=== PATIENT | male | born 1960 | race Two or more races ===

== ENCOUNTER 2019-04-06 13:08 | Emergency (ER) | payer OTHER ==
[~2019-04-06] VITALS: Ht 170.2 cm; Wt 106.6 kg
[~2019-04-06 13:08] MED LIST: AMOX1TAB5 PO; ASPIR 8181 MG PO; AVAPRO150 MG PO; BACTROBAN OINT22 GM TP; CATAFLAM50 MG PO; GILTUSS TR TAB1 EACH PO; HUMALOG MI100 UNIT/1 SQ; METFORMIN HCL500 MG PO; ORPH100T PO; PLAVIX75 MG PO; TRAMADOL HCL-AP1 TAB PO; ULTRAM50 MG PO
== END 2019-04-06 15:15 | disposition home or self-care (01) ==
LOC: ER 13:08
DX: B34.9 Viral infection, unspecified (principal)

== ENCOUNTER 2022-06-27 11:34 | Inpatient (IN) | payer OTHER ==
[~2022-06-27] VITALS: Ht 170.2 cm; Wt 99.8 kg
[2022-06-27] MEDS ORDERED: [UNRECOGNIZED DRUG - OTHER] (12:24)
[2022-06-27] MEDS ORDERED: APIDRA100 UNIT/1 (12:25)
[2022-06-27] MEDS ORDERED: TOPROL XL25 M1 (12:25)
[2022-06-27] MEDS ORDERED: COZAAR25 MG (12:25)
[2022-07-02] MEDS ORDERED: INTESTINEX680 M1 PO (16:10)
[2022-07-02] MEDS ORDERED: CIPRO500 MG PO (16:10)
[2022-07-02] MEDS ORDERED: METRONIDAZOLE500 MG PO (16:10)
== END 2022-07-02 17:31 | disposition home or self-care (01) | DRG 292 ==
LOC: ER 11:34 → SEC-K 20:36 → MEDJ 20:36
PROVIDERS: ADMIT Internal Medicine; ATTEND Internal Medicine
PROC: BW21ZZZ Computerized Tomography (CT Scan) of Abdomen and Pelvis (ICD-10-PCS; 2022-06-27)
PROC: B44FZZZ Ultrasonography of Right Lower Extremity Arteries (ICD-10-PCS; principal; 2022-06-29)
PROC: B54BZZZ Ultrasonography of Right Lower Extremity Veins (ICD-10-PCS; 2022-06-29)
DX: I13.0 Hypertensive heart and chronic kidney disease with heart failure and stage 1 through stage 4 chronic kidney disease, or unspecified chronic kidney disease (principal); A02.0 Salmonella enteritis; L03.113 Cellulitis of right upper limb; E86.0 Dehydration; E11.65 Type 2 diabetes mellitus with hyperglycemia; I73.9 Peripheral vascular disease, unspecified; K52.89 Other specified noninfective gastroenteritis and colitis; Z20.822 Contact with and (suspected) exposure to COVID-19; Z79.4 Long term (current) use of insulin

== ENCOUNTER 2022-10-08 04:58 | Day surgery (SDC) | payer OTHER ==
[~2022-10-08] VITALS: Ht 170.2 cm; Wt 99.8 kg
[~2022-10-08 04:58] MED LIST changes: +APIDRA100 UNIT/1; +CIPRO500 MG PO; +COZAAR25 MG; +INTESTINEX680 M1 PO; +METRONIDAZOLE500 MG PO; +TOPROL XL25 M1; +[UNRECOGNIZED DRUG - OTHER]
== END 2022-10-08 11:40 | disposition home or self-care (01) ==
LOC: CIR.AMB 04:58
PROVIDERS: ATTEND Urology
DX: N47.1 Phimosis (principal); N47.7 Other inflammatory diseases of prepuce; I10 Essential (primary) hypertension; E78.5 Hyperlipidemia, unspecified; Z86.16 Personal history of COVID-19; Z20.822 Contact with and (suspected) exposure to COVID-19

== ENCOUNTER 2023-01-14 19:05 | Emergency (ER) | payer OTHER ==
[~2023-01-14] VITALS: Ht 170.2 cm; Wt 104.3 kg
== END 2023-01-14 21:17 | disposition home or self-care (01) ==
LOC: ER 19:05
DX: S91.111A Laceration without foreign body of right great toe without damage to nail, initial encounter (principal); W19.XXXA Unspecified fall, initial encounter; Y93.9 Activity, unspecified; Y92.89 Other specified places as the place of occurrence of the external cause; Y99.9 Unspecified external cause status; E11.21 Type 2 diabetes mellitus with diabetic nephropathy; Z79.4 Long term (current) use of insulin; I10 Essential (primary) hypertension

== ENCOUNTER → 2023-01-22 | Emergency (ER) | payer OTHER ==
[~2023-01-22] VITALS: Ht 170.2 cm; Wt 104.3 kg
[~2023-01-22] MED LIST changes: +TRIJARDY XR 101 EACH PO
== END | disposition home or self-care (01) ==
LOC: ER 13:20
DX: Z48.02 Encounter for removal of sutures (principal); E11.9 Type 2 diabetes mellitus without complications; Z79.4 Long term (current) use of insulin; I10 Essential (primary) hypertension

== ENCOUNTER 2024-08-30 10:25 | Emergency (ER) | payer OTHER ==
[~2024-08-30] VITALS: Ht 170.2 cm; Wt 102.1 kg
== END 2024-08-30 14:31 | disposition home or self-care (01) ==
LOC: ER 10:27
DX: S40.011A Contusion of right shoulder, initial encounter (principal); S80.01XA Contusion of right knee, initial encounter; W18.39XA Other fall on same level, initial encounter; Y93.89 Activity, other specified; Y92.26 Movie house or cinema as the place of occurrence of the external cause; Y99.9 Unspecified external cause status; M54.2 Cervicalgia; I10 Essential (primary) hypertension; E11.9 Type 2 diabetes mellitus without complications; Z79.4 Long term (current) use of insulin; Z79.84 Long term (current) use of oral hypoglycemic drugs

== ENCOUNTER 2024-09-25 14:27 | Emergency (ER) | payer OTHER ==
[~2024-09-25] VITALS: Ht 170.2 cm; Wt 99.8 kg
[2024-09-25] MEDS ORDERED: APIDRA100 UNIT/1 SQ (15:17)
[2024-09-25] MEDS ORDERED: CLINDAMYCIN PHOSPHATE 150 MG/ML (600mg) IV ONE (16:45)
[2024-09-25 18:07] LABS: HEMATOCRIT 44.5 % (39.0-48.0); HEMOGLOBIN 15.6 g/dL (13-16.00); MEAN CELL VOLUME 84.4 fL (80.0-100.00); MEAN CORPUSCULAR HEMOGLOBIN 29.5 pg (27.00-32.0); PLATELET COUNT 305 K/uL (150-450); RED BLOOD COUNT 5.28 M/uL (4.00-6.00); RED CELL DISTRIBUTION WIDTH 13.9 % (11.5-14.5)
[2024-09-25 18:54] LABS: BILIRUBIN TOTAL 0.74 mg/dL (0.3-1.2); CALCIUM 9.5 mg/dL (8.5-10.1); CREATININE SERUM 0.99 mg/dL (0.70-1.30); GFR 75.63; GLOBULINA 4.4 G/DL (2.4-3.5); POTASSIUM 3.96 mEq/L (3.5-5.1); TOTAL PROTEIN 8.4 gm/dL (6.4-8.2)
== END 2024-09-25 19:27 | disposition home or self-care (01) ==
LOC: ER 14:29
PROVIDERS: General Practice
DX: L02.91 Cutaneous abscess, unspecified (principal); I10 Essential (primary) hypertension; E11.9 Type 2 diabetes mellitus without complications; Z79.84 Long term (current) use of oral hypoglycemic drugs

== ENCOUNTER 2024-11-19 13:59 | Emergency (ER) | payer OTHER ==
[~2024-11-19] VITALS: Ht 170.2 cm; Wt 99.8 kg
[~2024-11-19 13:59] MED LIST changes: +APIDRA100 UNIT/1 SQ
[2024-11-19] MEDS ORDERED: KETOROLAC TROMETHAMINE 30 MG VIAL IM STA (17:06)
[2024-11-19] MEDS ORDERED: ORPHENADRINE CITRATE 30 MG/ML AMPUL IM STA (17:07)
[2024-11-19] MEDS ORDERED: ORPHENADRINE CITRATE 30 MG/ML AMPUL ONE (17:12)
[2024-11-19] MEDS ORDERED: KETOROLAC TROMETHAMINE 30 MG VIAL ONE (17:12)
== END 2024-11-19 19:30 | disposition home or self-care (01) ==
LOC: ER 13:59
DX: M54.9 Dorsalgia, unspecified (principal); L03.116 Cellulitis of left lower limb

== ENCOUNTER 2025-02-15 11:04 | Emergency (ER) | payer OTHER ==
[~2025-02-15] VITALS: Ht 170.2 cm; Wt 104.3 kg
[2025-02-15 11:37] VITALS: BP 130/77; O2SAT 98
[2025-02-15] MEDS ORDERED: DEXAMETHASONE SODIUM PHOSPHATE 4 MG/ML VIAL IM STA (12:43)
[2025-02-15] MEDS ORDERED: ORPHENADRINE CITRATE 30 MG/ML AMPUL IM STA (12:44)
[2025-02-15] MEDS ORDERED: DEXAMETHASONE SODIUM PHOSPHATE 4 MG/ML VIAL ONE (12:49)
[2025-02-15] MEDS ORDERED: ORPHENADRINE CITRATE 30 MG/ML AMPUL ONE (12:49)
== END 2025-02-15 15:49 | disposition home or self-care (01) ==
LOC: ER 11:05
DX: M51.26 Other intervertebral disc displacement, lumbar region (principal); I10 Essential (primary) hypertension

== ENCOUNTER 2025-02-20 18:26 | Emergency (ER) | payer OTHER ==
[~2025-02-20] VITALS: Ht 170.2 cm; Wt 59.0 kg
[2025-02-20 19:18] VITALS: BP 105/69; O2SAT 97
[2025-02-20] MEDS ORDERED: KETOROLAC TROMETHAMINE 60 MG VIAL IM STA (19:34)
[2025-02-20] MEDS ORDERED: DEXAMETHASONE SODIUM PHOSPHATE 4 MG/ML VIAL IM STA (19:35)
[2025-02-20] MEDS ORDERED: ORPHENADRINE CITRATE 30 MG/ML AMPUL IM STA (19:35)
[2025-02-20] MEDS ORDERED: TRAMADOL HCL 50 MG TABLET PO STA (19:36)
[2025-02-20] MEDS ORDERED: DEXAMETHASONE SODIUM PHOSPHATE 4 MG/ML VIAL ONE (19:58)
[2025-02-20] MEDS ORDERED: KETOROLAC TROMETHAMINE 60 MG VIAL IM ONE (19:58)
[2025-02-20] MEDS ORDERED: ORPHENADRINE CITRATE 30 MG/ML AMPUL ONE (19:58)
== END 2025-02-20 21:19 | disposition home or self-care (01) ==
LOC: ER 18:27
DX: M54.59 Other low back pain (principal)
CPT/HCPCS: 96372; 99282; J1100; J1885; J2360